=== PATIENT | male | born 1990 | race Caucasian/White ===

== ENCOUNTER 2021-09-17 09:20 | Emergency (ER) | payer BC ==
[~2021-09-17] VITALS: Ht 175.3 cm; Wt 95.3 kg
[2021-09-17 09:27] VITALS: BP 132/74
--- NOTE | 2021-09-17 09:35 | NUR ---
TENT 2
[2021-09-17] MEDS ORDERED: KETOROLAC 30 MG/ML VIAL IM ONE (10:10)
[2021-09-17] MEDS ORDERED: DEXAMETHASONE 10 MG/ML VIAL IM ONE (10:10)
--- NOTE | 2021-09-17 10:30 | NUR ---
C/O NAVARRO, FEVER, SORE THROAT, NAUSEA, DIARRHEA X 3 DAYS. COVID TESTED NEGATIVE 2 DAYS AGO. PMH: ASTHMA
--- NOTE | 2021-09-17 10:31 | NUR ---
COVID PCR SWAB DONE
[2021-09-17 10:35] VITALS: BP 121/65
--- NOTE | 2021-09-17 10:40 | NUR ---
Patient discharged with v/s stable. Written and verbal after care instructions ABOUT MIGRAINE HEADACHE given and explained. Patient verbalized understanding. Ambulatory with steady gait. All questions addressed prior to discharge. Advised to follow up with PMD.
== END 2021-09-17 10:40 | disposition home or self-care (01) ==
LOC: MED 09:20
DX: G43.909 Migraine, unspecified, not intractable, without status migrainosus (principal); R11.2 Nausea with vomiting, unspecified; R19.7 Diarrhea, unspecified; Z20.822 Contact with and (suspected) exposure to COVID-19
CPT/HCPCS: 96372; 99284; J1100; J1885; U0003

== ENCOUNTER 2021-10-26 10:00 | Emergency (ER) | payer BC ==
[~2021-10-26] VITALS: Ht 175.3 cm; Wt 90.7 kg
[2021-10-26 10:00] VITALS: BP 112/78
[2021-10-26 11:00] VITALS: BP 112/75
[2021-10-26] MEDS ORDERED: ACETAMIN/CODEINE 120/12MG-5ML 5 ML UDC PO ONE (11:45)
[2021-10-26] MEDS ORDERED: KETOROLAC 30 MG/ML VIAL IM ONE (11:45)
[2021-10-26] MEDS ORDERED: ALBU0.0912 IH (12:08)
[2021-10-26] MEDS ORDERED: PRED20TA5 PO (12:08)
[2021-10-26] MEDS ORDERED: ROBAC PO (12:08)
== END 2021-10-26 12:19 | disposition home or self-care (01) ==
LOC: MED 10:00
DX: J40 Bronchitis, not specified as acute or chronic (principal); Z20.822 Contact with and (suspected) exposure to COVID-19; J45.909 Unspecified asthma, uncomplicated; Z79.899 Other long term (current) drug therapy
CPT/HCPCS: 71045; 87081; 87426; 96372; 99284; J1885; Q0092